=== PATIENT | male | born 1960 | race African-American/Black ===

== ENCOUNTER 2025-06-28 14:38 | Emergency (ER) | payer MEDICARE, OTHER ==
[~2025-06-28] VITALS: Ht 177.8 cm; Wt 70.0 kg
[~2025-06-28 14:38] MED LIST: ALLO100T PO; AMLO10TA80 PO; ATOR20TA65 PO; LISI10TA26 PO
[2025-06-28 14:46] VITALS: O2SAT 99
[2025-06-28] MEDS ORDERED: LIDO-53 TP (15:58)
[2025-06-28] MEDS ORDERED: IBUP-2028 MT (15:58)
[2025-06-28] MEDS: KETOROLAC 30MG/ML VIAL IM ONE (16:24)
[2025-06-28 16:25] VITALS: BP 139/79; PULSE 82; RESP 16; TEMP 37.1; O2SAT 99
[2025-06-28] MEDS: LIDOCAINE 5% PATCH TOP SCH (16:25)
== END 2025-06-28 16:25 | disposition home or self-care (01) ==
LOC: ER 14:38
DX: M25.512 Pain in left shoulder (principal); I10 Essential (primary) hypertension; Z99.2 Dependence on renal dialysis; Z79.899 Other long term (current) drug therapy; Z98.890 Other specified postprocedural states; X50.0XXA Overexertion from strenuous movement or load, initial encounter; Y93.89 Activity, other specified; Y92.89 Other specified places as the place of occurrence of the external cause; Y99.8 Other external cause status
CPT/HCPCS: 99283; 73030; 96372; J1885

== ENCOUNTER 2025-08-07 12:33 | Emergency (ER) | payer SELFPAY ==
[~2025-08-07] VITALS: Ht 175.3 cm; Wt 75.0 kg
[~2025-08-07 12:33] MED LIST changes: +IBUP-2028 MT; +LIDO-53 TP
[2025-08-07 12:39] VITALS: O2SAT 100
[2025-08-07 17:03] VITALS: BP 139/88; PULSE 73; RESP 18; TEMP 36.6; O2SAT 100
== END 2025-08-07 17:06 | disposition home or self-care (01) ==
LOC: ER 12:33
DX: H93.11 Tinnitus, right ear (principal); H91.92 Unspecified hearing loss, left ear; I12.0 Hypertensive chronic kidney disease with stage 5 chronic kidney disease or end stage renal disease; N18.6 End stage renal disease; Z99.2 Dependence on renal dialysis; Z98.890 Other specified postprocedural states; Z79.899 Other long term (current) drug therapy
CPT/HCPCS: 99284